=== PATIENT | female | born 1980 | race Caucasian/White ===

== ENCOUNTER 2025-09-21 10:12 | Outpatient (CLI) | payer OTHER ==
[~2025-09-21 10:12] MED LIST: PERCOCET 10-3251 TAB PO; PRENATAL1 TAB PO; SYNTHROID112 MCG PO
== END 2025-09-21 10:14 | disposition home or self-care (01) ==
LOC: SONOGRAMA 10:12
PROVIDERS: ATTEND Pathology Anatomic Pathology
DX: D34 Benign neoplasm of thyroid gland (principal); E04.1 Nontoxic single thyroid nodule